=== PATIENT | female | born 1980 | race Caucasian/White ===

== ENCOUNTER → 2021-10-10 | Outpatient (CLI) | payer SELFPAY ==
--- NOTE | 2021-10-10 10:08 | Diagnostic Imaging Report ---
INDICATION: Pain in the left knee, fall 3 weeks ago. TIME OF EXAM: 9:53 AM 3 views of the left knee demonstrate medial and patellofemoral compartment degenerative change with joint space narrowing and marginal spurring. Lateral compartments maintained. No fracture, dislocation or effusion is seen. IMPRESSION: Degenerative changes. No acute bony abnormality is detected. Dictated by: Dictated on workstation # [id number]
== END ==
LOC: RAD FS 09:41
PROVIDERS: ATTEND Family Medicine
DX: M17.12 Unilateral primary osteoarthritis, left knee (principal); W19.XXXA Unspecified fall, initial encounter
CPT/HCPCS: 73562

== ENCOUNTER → 2021-10-18 | Outpatient (CLI) | payer SELFPAY ==
--- NOTE | 2021-10-18 16:54 | Diagnostic Imaging Report ---
MRI LT LOWER EXT JOINT W/O TECHNIQUE: Multiplanar, multisequence MR imaging of the left knee was performed without contrast. COMPARISON: Left knee radiographs from 10/10/2021 INDICATION: Left knee pain FINDINGS: MENISCI Medial meniscus: Free edge truncation in the body of the medial meniscus is likely from degenerative fraying. The body of the medial meniscus is partially extruded into the medial gutter due to the advanced degenerative changes. Lateral meniscus: Normal. LIGAMENTS ACL: Intact. PCL: Intact. MCL: Intact. LCL: The lateral collateral ligamentous complex is intact. EXTENSOR MECHANISM The extensor mechanism is intact. CARTILAGE Medial compartment: Diffuse full-thickness articular cartilage loss is present throughout the medial compartment. There are scattered areas of subchondral bone marrow edema in the medial femoral condyle and medial tibial plateau. Lateral compartment: The lateral compartment articular cartilage is preserved without high-grade chondromalacia. Patellofemoral compartment: Partial thickness chondral loss in the medial and lateral patellar facets. BONE No fracture, stress fracture or osteonecrosis. SOFT TISSUE Small knee joint effusion with moderate synovitis is likely reactive in nature due to the advanced degenerative arthritis. Small Jenkins's cyst. IMPRESSION: 1. 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 2. Degenerative tearing in the free edge of the medial meniscus. 3. Small knee joint effusion with extensive synovitis is likely reactive in nature from the advanced arthritis. Dictated by: Dictated on workstation # [id number]
== END ==
LOC: RAD 14:00
PROVIDERS: ATTEND Family Medicine
DX: M17.12 Unilateral primary osteoarthritis, left knee (principal); S83.242A Other tear of medial meniscus, current injury, left knee, initial encounter; S83.92XA Sprain of unspecified site of left knee, initial encounter; M65.9 Synovitis and tenosynovitis, unspecified; M25.462 Effusion, left knee; X58.XXXA Exposure to other specified factors, initial encounter
CPT/HCPCS: 73721

== ENCOUNTER → 2021-11-07 | Outpatient (CLI) | payer OTHER | LOC: ORTHO 09:16 | PROVIDERS: ATTEND Orthopaedic Surgery | DX: M25.562 Pain in left knee (principal) | CPT/HCPCS: 20610; G0463 ==